=== PATIENT | female | born 1965 ===

== ENCOUNTER 2021-05-11 07:35 | Day surgery (SDC) | payer BC ==
[~2021-05-11] VITALS: Ht 165.1 cm; Wt 67.1 kg
[2021-05-11] MEDS ORDERED: HYGROTON 2525 MG/TAB PO (09:17)
[2021-05-11] MEDS ORDERED: TOPROL XL100 MG PO (09:17)
[2021-05-11] MEDS ORDERED: PRAVACHOL 20MG20 MG PO (09:18)
[2021-05-11 09:19] VITALS: BP 104/74; PULSE 79; TEMP 98.3
[2021-05-11 10:30] VITALS: BP 110/87; PULSE 81; TEMP 97.5
--- NOTE | 2021-05-11 10:30 | NUR ---
Patient returned to [facility] via cart, transfered to chair. Postop vital signs started. Patient reports no appetite, but agrees to try water and crackers.
[2021-05-11 10:45] VITALS: BP 107/67; PULSE 64
--- NOTE | 2021-05-11 10:45 | NUR ---
Patient sitting up comfortably in chair. Vital signs stable and consistent with preop baseline. Tolerating food and drink well.
[2021-05-11 11:00] VITALS: BP 111/73; PULSE 66
--- NOTE | 2021-05-11 11:00 | NUR ---
Patient sitting up comfortably in chair, denies any discomfort. Vital signs remain stable. Reviewed discharge instructions and education materials with patient and . Gave patient copy of report per Dr. Suarez due to patient potentially traveling shortly after procedure. Patient and verbalize understanding of instruction, materials and report. D/C IV with no complications. Instructed to dress and call for transport to vehicle.
--- NOTE | 2021-05-11 11:35 | NUR ---
Patient was transported via wheelchair with to personal vehicle. Discharge instruction and educatino materials given to patient.
== END 2021-05-11 11:35 | disposition home or self-care (01) ==
LOC: SDCO 07:35
DX: K51.911 Ulcerative colitis, unspecified with rectal bleeding (principal); K92.1 Melena; R19.7 Diarrhea, unspecified; R93.5 Abnormal findings on diagnostic imaging of other abdominal regions, including retroperitoneum; E78.5 Hyperlipidemia, unspecified; I10 Essential (primary) hypertension; Z98.51 Tubal ligation status; Z79.899 Other long term (current) drug therapy
CPT/HCPCS: J2704; J7120